=== PATIENT | female | born 1955 | race American Indian/Alaskan Native ===

== ENCOUNTER 2024-02-25 08:44 | Outpatient (RCR) | payer OTHER, SELFPAY | END 2024-03-06 23:59 | disposition home or self-care (01) | LOC: SCTC 08:44 | PROVIDERS: PCP Physician Assistant; Referring Provider Physician Assistant; Visit Provider Nurse Practitioner Family | DX: D69.6 Thrombocytopenia, unspecified (principal); D50.9 Iron deficiency anemia, unspecified; R16.1 Splenomegaly, not elsewhere classified; K64.9 Unspecified hemorrhoids; K57.90 Diverticulosis of intestine, part unspecified, without perforation or abscess without bleeding; E66.9 Obesity, unspecified; Z68.30 Body mass index [BMI] 30.0-30.9, adult | CPT/HCPCS: 99212; G0463 ==

== ENCOUNTER 2024-03-10 15:38 | Outpatient (RCR) | payer OTHER, SELFPAY | END 2024-04-06 23:59 | disposition home or self-care (01) | LOC: SCTC 15:38 | PROVIDERS: PCP Physician Assistant; Referring Provider Physician Assistant; Visit Provider Nurse Practitioner Family | DX: D69.6 Thrombocytopenia, unspecified (principal); D50.9 Iron deficiency anemia, unspecified; R16.1 Splenomegaly, not elsewhere classified; K64.9 Unspecified hemorrhoids; K57.90 Diverticulosis of intestine, part unspecified, without perforation or abscess without bleeding; K25.9 Gastric ulcer, unspecified as acute or chronic, without hemorrhage or perforation | CPT/HCPCS: 99213; G0463 ==

== ENCOUNTER 2024-05-11 15:15 | Outpatient (RCR) | payer OTHER, SELFPAY | END 2024-06-04 23:59 | disposition home or self-care (01) | LOC: SCTC 15:15 | PROVIDERS: PCP Physician Assistant; Referring Provider Physician Assistant; Visit Provider Nurse Practitioner Family | DX: Z71.2 Person consulting for explanation of examination or test findings (principal); D69.6 Thrombocytopenia, unspecified; D50.9 Iron deficiency anemia, unspecified; K64.9 Unspecified hemorrhoids; K57.90 Diverticulosis of intestine, part unspecified, without perforation or abscess without bleeding; R16.1 Splenomegaly, not elsewhere classified | CPT/HCPCS: 99212; G0463 ==

== ENCOUNTER → 2024-06-02 | Outpatient (CLI) | payer OTHER, SELFPAY ==
--- NOTE | 2024-06-02 14:05 | XR_ITS ---
Examination: Bone densitometry Date and time of exam:June 02, 2024 1347 hrs. Indications: Hysterectomy age 41 rib fractures 2019 diabetic vitamin D 5 years, personal history osteopenia Technique: Lumbar spine and hip total bone mineralization values of an calculated. Peak reference and age match control results have been displayed. Findings: Lumbar spine total bone mineralization is0.860 gm/cm2. This is 1.7 standard deviations below peak reference. This is 0.2 standard deviations above age-matched controls. Hip total bone mineralization is 0.823 gm/cm2 This is 1.0 standard deviations below peak reference. This is 0.2 standard deviations above age-matched controls Impression: There is osteopenia based on lumbar spine measurements. There is osteopenia based on hip measurements Lumbar mineralization is decreased 7.2% compared with July 25, 2010 History administration is decreased 2.4% compared with July 25, 2010
== END | disposition home or self-care (01) ==
PROVIDERS: PCP Physician Assistant; Referring Provider Physician Assistant; Visit Provider Physician Assistant
DX: M85.89 Other specified disorders of bone density and structure, multiple sites (principal)
CPT/HCPCS: 77080

== ENCOUNTER 2024-06-08 08:46 | Outpatient (RCR) | payer OTHER, SELFPAY | END 2024-07-05 23:59 | disposition home or self-care (01) | LOC: SCTC 08:46 | PROVIDERS: PCP Physician Assistant; Referring Provider Physician Assistant; Visit Provider Nurse Practitioner Family | DX: D69.6 Thrombocytopenia, unspecified (principal); R16.1 Splenomegaly, not elsewhere classified; K64.9 Unspecified hemorrhoids; K57.90 Diverticulosis of intestine, part unspecified, without perforation or abscess without bleeding; Z86.2 Personal history of diseases of the blood and blood-forming organs and certain disorders involving the immune mechanism; Z87.19 Personal history of other diseases of the digestive system | CPT/HCPCS: 99212; G0463 ==

== ENCOUNTER 2024-08-10 09:21 | Outpatient (RCR) | payer OTHER, SELFPAY | END 2024-09-04 23:59 | disposition home or self-care (01) | LOC: SCTC 09:21 | PROVIDERS: PCP Physician Assistant; Referring Provider Physician Assistant; Visit Provider Nurse Practitioner Family | DX: D69.6 Thrombocytopenia, unspecified (principal); D50.9 Iron deficiency anemia, unspecified; R16.1 Splenomegaly, not elsewhere classified; Z87.19 Personal history of other diseases of the digestive system | CPT/HCPCS: 99212; G0463 ==

== ENCOUNTER 2024-09-22 15:47 | Outpatient (RCR) | payer OTHER, SELFPAY | END 2024-10-04 23:59 | disposition home or self-care (01) | LOC: SCTC 15:47 | PROVIDERS: PCP Physician Assistant; Referring Provider Physician Assistant; Visit Provider Nurse Practitioner Family | DX: D69.6 Thrombocytopenia, unspecified (principal); D50.9 Iron deficiency anemia, unspecified; R16.1 Splenomegaly, not elsewhere classified; K64.9 Unspecified hemorrhoids; K57.90 Diverticulosis of intestine, part unspecified, without perforation or abscess without bleeding; Z87.19 Personal history of other diseases of the digestive system | CPT/HCPCS: 99212; G0463 ==

== ENCOUNTER → 2024-12-13 | Outpatient (CLI) | payer OTHER, SELFPAY ==
--- NOTE | 2024-12-13 10:00 | XR_ITS ---
Examination: Screening digital mammography, bilateral Computer aided detection 3-D breast Tomosynthesis, bilateral Date and time of exam: December 13, 2024 0944 hours, compared to mammograms dating to October 30, 2018 Indication: Screening Technique: Nonmagnified MLO, CC views of the breasts to been obtained, reconstructed from 3-D Tomosynthesis images. R2 computer aided detection program utilized for evaluation of suspicious masses and/or abnormal calcifications. 3-D Tomosynthesis images obtained. Findings: Scattered areas of fibroglandular density. Benign calcifications. No interval suspicious masses Impression: BI-RADS category II: Benign Findings. Recommend 1 year follow-up mammogram.
== END | disposition home or self-care (01) ==
LOC: CDIM 09:31
PROVIDERS: Referring Provider Physician Assistant; Visit Provider Physician Assistant
DX: Z12.31 Encounter for screening mammogram for malignant neoplasm of breast (principal); R92.323 Mammographic fibroglandular density, bilateral breasts; R92.1 Mammographic calcification found on diagnostic imaging of breast
CPT/HCPCS: 77063; 77067

== ENCOUNTER 2024-12-20 09:27 | Outpatient (RCR) | payer OTHER, SELFPAY | END 2025-01-04 23:59 | disposition home or self-care (01) | LOC: SCTC 09:27 | PROVIDERS: PCP Physician Assistant; Referring Provider Nurse Practitioner Family; Visit Provider Nurse Practitioner Family | DX: D69.6 Thrombocytopenia, unspecified (principal); D50.9 Iron deficiency anemia, unspecified; K64.9 Unspecified hemorrhoids; K57.90 Diverticulosis of intestine, part unspecified, without perforation or abscess without bleeding; R16.1 Splenomegaly, not elsewhere classified; K92.1 Melena | CPT/HCPCS: 99212; G0463 ==

== ENCOUNTER 2025-02-01 08:44 | Outpatient (RCR) | payer BC, OTHER, SELFPAY | END 2025-02-04 23:59 | disposition home or self-care (01) | LOC: SCTC 08:44 | PROVIDERS: PCP Physician Assistant; Referring Provider Physician Assistant; Visit Provider Nurse Practitioner Family | DX: D50.9 Iron deficiency anemia, unspecified (principal); D69.6 Thrombocytopenia, unspecified; R16.1 Splenomegaly, not elsewhere classified; K64.9 Unspecified hemorrhoids; K57.90 Diverticulosis of intestine, part unspecified, without perforation or abscess without bleeding; Z87.19 Personal history of other diseases of the digestive system | CPT/HCPCS: 99212; G0463 ==

== ENCOUNTER 2025-03-01 08:37 | Outpatient (RCR) | payer BC, OTHER, SELFPAY | END 2025-03-06 23:59 | disposition home or self-care (01) | LOC: SCTC 08:37 | PROVIDERS: PCP Physician Assistant; Referring Provider Physician Assistant; Visit Provider Nurse Practitioner Family | DX: D69.6 Thrombocytopenia, unspecified (principal); R16.1 Splenomegaly, not elsewhere classified; D50.9 Iron deficiency anemia, unspecified; K64.9 Unspecified hemorrhoids; K57.90 Diverticulosis of intestine, part unspecified, without perforation or abscess without bleeding; K25.9 Gastric ulcer, unspecified as acute or chronic, without hemorrhage or perforation | CPT/HCPCS: 99212; G0463 ==

== ENCOUNTER 2025-03-01 09:59 | Emergency (ER) | payer BC, OTHER, SELFPAY ==
[2025-03-01] VITALS (12 sets, daily range): BP systolic 126–145; BP diastolic 57–82; PULSE 72–87; RESP 16–20; TEMP 36.7–37.1; O2SAT 97–100; BMI 30.7
--- NOTE | 2025-03-01 10:22 | PD.EDRME ---
Rapid Medical Screening Exam RME Arrival date/time: 03/01/25 09:59 69-year-old female with a history of type 2 diabetes, hypertension, hyperlipidemia, anemia was sent to the emergency room by the cancer treatment center for low hemoglobin level \I have greeted and performed a focused initial assessment of this patient. A comprehensive ED assessment and evaluation of the patient, analysis of all test results, and completion of the medical decision making process will be conducted by additional ED providers. Chief Complaint: Recheck/Abnormal Lab/Rx Time Seen by Provider: 03/01/25 10:08 Vital signs: Vital Signs Temperature 98.2 F 03/01/25 10:20 Pulse Rate 87 03/01/25 10:20 Respiratory Rate 18 03/01/25 10:20 Blood Pressure 126/69 03/01/25 10:20 Pulse Oximetry (%) 100 03/01/25 10:20 Oxygen Delivery Method Room Air 03/01/25 10:20 Vital signs reviewed by provider: Yes Exam: Strong and regular rhythm. S1 and S2 noted no JVD no murmurs Soft nontender abdomen Clear bilateral lung sounds Clinical Impression: Anemia
[2025-03-01 10:45] LABS: Basophils # (Auto) 0.0 Thou/mm3 (0.0-0.2); Basophils % (Auto) 1 % (0-2.5); Eosinophils # (Auto) 0.3 Thou/mm3 (0.0-0.5); Eosinophils % (Auto) 8 % (0-10); Hematocrit 23.3 % (36.0-46.0); Immature Granulocytes Auto 0.01 Thou/mm3 (0.00-0.00); Lymphocytes # (Auto) 0.9 Thou/mm3 (1.0-4.8); Lymphocytes % (Auto) 25 % (10-50); Mean Corpuscular HGB Conc 28.3 g/dl (31.0-37.0); Mean Corpuscular Hemoglobin 23.1 pg (25.0-35.0); Mean Corpuscular Volume 82 fL (80-100); Monocytes # (Auto) 0.3 Thou/mm3 (0.0-0.8); Monocytes % (Auto) 8 % (0-12); Neutrophils # (Auto) 2.1 Thou/mm3 (1.8-7.7); Neutrophils % (Auto) 57 % (37-80); Nucleated Red Blood Cell # 0.00 Thou/mm3 (0.00-0.00); Nucleated Red Blood Cell % 0 /100 WBC (0); RDW Standard Deviation 44.5 fL (36.4-46.3); Red Blood Count 2.86 Miln/mm3 (4.00-5.20); White Blood Count 3.7 Thou/mm3 (3.6-11.0)
[2025-03-01 11:00] LABS: Hemoglobin 6.6 g/dL (12.0-16.0); Platelet Count 57 Thou/mm3 (140-440)
[2025-03-01 11:02] LABS: INR 1.1 (0.9-1.3); Partial Thromboplastin Time 25.6 Seconds (22.0-36.0); Prothrombin Time 12.1 Seconds (9.0-12.2)
[2025-03-01 11:27] LABS: Alanine Aminotransferase 28 U/L (10-49); Albumin, Serum 3.9 gm/dL (3.4-4.8); Albumin/Globulin Ratio 1.6 (1.2-2.2); Anion Gap 10 (7-16); Aspartate Amino Transferase < 10 U/L (0-34); BUN/Creatinine Ratio 11 Ratio (12-20); Bilirubin,Total 0.9 mg/dL (0.3-1.2); Blood Urea Nitrogen 15 mg/dL (9-23); Calcium 9.5 mg/dL (8.3-10.6); Calcium (Corrected) 9.6 mg/dL (8.5-10.1); Carbon Dioxide 22.1 mMol/L (20.0-31.0); Chloride 115 mMol/L (98-107); Creatinine (Component) 1.4 mg/dL (0.6-1.3); Estimated Creatinine Clearance 41.7 mL/min (>60); Globulin 2.5 gm/dL (2.3-3.5); Glucose 91 mg/dL (74-106); Osmolality,Calculated 293 (275-295); Potassium 4.2 mMol/L (3.4-5.1); Sodium 147 mMol/L (136-145); Total Protein 6.4 gm/dL (5.7-8.2); eGFR 41 See Note
[2025-03-01 11:46] LABS: Alkaline Phosphatase 64 U/L (46-116)
--- NOTE | 2025-03-01 13:58 | PD.EDADULT ---
ED General RME/HPI General Chief complaint: Recheck/Abnormal Lab/Rx Stated complaint: LOW HGB Time Seen by Provider: 03/01/25 10:08 Arrival date/time: 03/01/25 09:59 CC: Generalized weakness and anemia HPI patient referred by PCP over for low hemoglobin. The patient has a history of chronic anemia is on iron pills but is awaiting a iron transfusion next week. Was informed by her PCP from outside lab draw that her hemoglobin was low. Patient denies chest pain shortness of breath difficulty breathing. Patient also states that she has had chronically low platelets. RME / HPI RME / HPI narrative: 03/01/25 09:59 69-year-old female with a history of type 2 diabetes, hypertension, hyperlipidemia, anemia was sent to the emergency room by the cancer treatment center for low hemoglobin level \I have greeted and performed a focused initial assessment of this patient. A comprehensive ED assessment and evaluation of the patient, analysis of all test results, and completion of the medical decision making process will be conducted by additional ED providers. Exam: Strong and regular rhythm. S1 and S2 noted no JVD no murmurs Soft nontender abdomen Clear bilateral lung sounds Impression: Anemia Related Data Home Medications ?Medication ?Instructions ?Recorded ?Confirmed insulin degludec 100 unit/mL (3 75 unit SQ QDAY ##0 03/08/16 05/06/22 mL) subcutaneous pen (Tresiba FlexTouch U-100 insulin) lisinopril 5 mg tablet 5 mg PO QDAY #0 tabs 03/08/16 05/06/22 insulin aspart U-100 100 unit/mL 20 unit subcut TID ##15 03/16/16 05/06/22 (3 mL) subcutaneous pen (Novolog FlexPen U-100 Insulin aspart) clopidogrel 75 mg tablet 75 mg PO QDAY 07/21/20 05/06/22 Held on 05/06/22. Instructions: Resume on 05/07/22. rosuvastatin 40 mg tablet 20 mg PO QDAY 07/21/20 05/06/22 aspirin 81 mg tablet,delayed 81 mg PO QDAY 05/06/22 05/06/22 release cholecalciferol (vitamin D3) 25 1,000 unit PO DAILY 05/06/22 05/06/22 mcg (1,000 unit) tablet (Vitamin D3) coenzyme Q10 100 mg capsule 200 mg PO DAILY 05/06/22 05/06/22 (CoQ-10) insulin lispro 200 unit/mL (3 mL) 20 unit subcut TID 05/06/22 05/06/22 subcutaneous pen (Humalog KwikPen U-200 Insulin) ranolazine 500 mg tablet,extended 500 mg PO BID 05/06/22 05/06/22 release,12 hr semaglutide 1 mg/dose (4 mg/3 mL) 1 mg subcut 1XD 05/06/22 05/06/22 subcutaneous pen injector (Ozempic) sodium bicarbonate 650 mg tablet 650 mg PO BID 05/06/22 05/06/22 terbinafine HCl 250 mg tablet 250 mg PO DAILY 05/06/22 05/06/22 vitamin B comp no.3-folic acid 1 1 tab PO DAILY 05/06/22 05/06/22 mg-vit C 60 mg-biotin 300 mcg tablet (Elvira-Suzette Rx) Previous Rx's ?Medication ?Instructions ?Recorded erythromycin 5 mg/gram (0.5 %) eye 1 applic ophthalmic (eye) QDAY 06/01/23 ointment #3.5 grams Allergies Allergy/AdvReac Type Severity Reaction Status Date / Time No Known Allergies Allergy Verified 06/01/23 02:59 Review of Systems Review of Systems Narrative Review of Systems: GEN: No fever, no chills, no weight loss EYES: No discharge, no visual changes, no pain HEENT: No ear pain, no congestion, no sore throat PULM: No shortness of breath, no cough, no congestion CV: No chest pain, no dyspnea on exertion, no palpitations GI: No nausea, no vomiting, no diarrhea, no pain, no constipation : No frequency, no urgency, no dysuria MUSC/SKEL: No joint pain, no back pain SKIN: No rash PSYCH: No hallucinations, no depression HEME/LYMPH: No easy bleeding or bruising tendencies NEURO: + weakness, no headache Past Medical History Past Medical History NEUROLOGIC: Negative Neurological Disorders or Seizures CARDIAC: Positive Cardiac Disorders (stent x1, heart attack), Myocardial Infarction, Hypercholesterolemia and Hypertension; Negative Congestive Heart Failure RESPIRATORY: Negative Chronic Obstructive Pulmonary Disease (COPD) GASTROINTESTINAL: Negative Gastrointestinal Disorders GENITOURINARY: Negative Genitourinary Disorders or Renal Disease MUSCULOSKELETAL: Positive Carpal Tunnel Syndrome (right); Negative Musculoskeletal Disorders ENDOCRINE: Positive Endocrine Disorders and Diabetes Mellitus Type 2; Negative Diabetes Mellitus Type 1 HEMATOLOGIC: Positive Anemia OTHER HISTORY: Negative Hospitalization, Falls, Blood Transfusions, Blood Transfusion Reaction (NA), Anesthesia Reactions, Chicken Pox, Measles, Mumps or Cancer Family History FAMILY HISTORY: Negative Family Psychiatric Problems, Family Respiratory Disorders, Family Cardiac Disorders or Family Gastrointestinal Problems Surgical History SURGICAL: Positive Coronary Stent (x1), Tonsillectomy, Hysterectomy (partial) and Tubal Ligation Social History SMOKING STATUS: Former smoker ED Exam Narrative Physical exam: [General: Not in any acute distress Head normocephalic HEENT: Eyes pupils are PERRLA EOMs are intact blanched conjunctiva, mouth pale moist membranes swallow symmetrical phonation normal all the subsystems of HEENT are within acceptable limits Neck is supple nontender Chest equal chest rise nontender to palpation Respiratory: Clear to auscultation no wheezes crackles or rubs CV: Rate rhythm is regular no murmurs rubs or clicks Abdomen is distended secondary to body habitus soft nontender no masses positive bowel sounds all 4 quadrants Back: No CVA tenderness no spinous process tenderness from cervical spine thoracic and lumbar spine Skin: Pale, intact no petechiae rash induration ulceration or crepitus Extremities: Moving all extremity against resistance cap refill less than 2 seconds neurosensory intact Neuro: Awake alert oriented x3 Glascow coma 15 no focal deficits] Course Quality Measures none Orders Category Date Time Status Transfuse,blood/blood products NOW Care 03/01/25 13:58 Completed CBC Stat Lab 03/01/25 10:30 Completed CMP [Comprehensive Metabolic Panel] Stat Lab 03/01/25 10:30 Completed PT [Prothrombin Time with INR] Stat Lab 03/01/25 10:30 Completed PTT [Partial Thromboplastin Time] Stat Lab 03/01/25 10:30 Completed Type and Screen Stat Lab 03/01/25 10:30 Completed prbc [Red Blood Cells] Stat Lab 03/01/25 10:30 Completed Special Diet Request Routine Oth 03/01/25 14:33 Active Vital Signs Vital signs: Vital Signs Temperature 98.2 F 03/01/25 10:20 Pulse Rate 87 03/01/25 10:20 Respiratory Rate 18 03/01/25 10:20 Blood Pressure 126/69 03/01/25 10:20 Pulse Oximetry (%) 100 03/01/25 10:20 Oxygen Delivery Method Room Air 03/01/25 10:20 Discharge Plan Plan Patient Disposition: HOME (Self Care) Patient condition on transfer: Stable Prescriptions/Referrals Prescriptions/Med Rec: No Action lisinopril 5 MG tablet 5 mg PO QDAY Qty: 0 insulin degludec [Tresiba FlexTouch U-100] 100 UNIT/1 ML insulin pen 75 unit SQ QDAY Qty: 0 insulin aspart U-100 [Novolog FlexPen U-100 Insulin] 100 UNIT/1 ML insulin pen 20 unit Sub-Q TID Qty: 15 Rx Instructions: WITH MEALS clopidogrel 75 mg Tablet 75 mg PO QDAY rosuvastatin 40 mg Tablet 20 mg PO QDAY aspirin 81 mg Tablet,Delayed Release (Dr/Ec) 81 mg PO QDAY terbinafine HCl 250 mg tablet 250 mg PO DAILY Patient Comments: TAKE 1 TABLET BY MOUTH DAILY sodium bicarbonate 650 mg tablet 650 mg PO BID Patient Comments: TAKE 2 TABLETS BY MOUTH EVERY DAY coenzyme Q10 [CoQ-10] 100 mg capsule 200 mg PO DAILY Patient Comments: take 200 mg tablet by mouth once a day ranolazine 500 mg tablet extended release 12 hr 500 mg PO BID Patient Comments: TAKE 1 TABLET BY MOUTH TWICE DAILY cholecalciferol (vitamin D3) [Vitamin D3] 25 mcg (1,000 unit) tablet 1,000 unit PO DAILY Patient Comments: take 1 tablet by mouth once a day Elvira-Suzette Rx 1-60-300 mg-mg-mcg tablet 1 tab PO DAILY Patient Comments: TAKE 1 TABLET BY MOUTH EVERY DAY Humalog KwikPen Insulin 200 unit/mL (3 mL) insulin pen 20 unit SUBCUT TID Patient Comments: ADMINISTER 20 UNITS UNDER THE SKIN THREE TIMES DAILY WITH MEALS. Rx Instructions: WITH MEALS Ozempic 1 mg/dose (4 mg/3 mL) pen injector 1 mg SUBCUT 1XD Rx Instructions: EVERY FRIDAY erythromycin 5 mg/gram (0.5 %) ointment 1 applic ophthalmic (eye) QDAY Qty: 3.5 0RF Referrals: Willy Joy MD [Physician, Gastroenterology] - In 1 week Problem List Clinical Impression: Anemia Patient/Caregiver Discharge Instructions Education Materials: Anemia Print Language: Welsh Stand Alone Forms: Yulisa Award Info., Work/School Release, Patient Portal Info Letter PA/INK GRINDER Supervising Physician PA/INK GRINDER Supervising Physician: Farhat Muñoz ENP [facility] Clinical Information Provided by: patient Medical Records reviewed [facility] Meds/Rx considered, not ordered None Labs/Rad/Tests considered, not ordered None Chronic Illness/Social Conditions Explain: Anemia Labs Labs: interpreted by sc Lab(s) Interpretation(s): CBC shows no leukocytosis, hemoglobin of 6.6 hematocrit of 23.3. Thrombocytopenic with a platelet count of 57. Coags within acceptable limits Sodium 147 potassium of 4.2 chloride of 115 creatinine 1.4 BUN is 15. No transaminitis or T. bili elevation.
--- NOTE | 2025-03-01 14:38 | PC.NURSE ---
Patient came in the ED after she went to cancer center, they found to have hgb 6.8. Pt is a&ox4, denies pain, only request was for food. VSS, call light within reach, bed in lowest position.
[2025-03-01 15:55] LABS: Slide Review Platelets confirmed
== END 2025-03-01 21:11 | disposition home or self-care (01) ==
PROVIDERS: Nurse Practitioner Family; Emergency Provider Emergency Medicine; PCP Physician Assistant
DX: D64.9 Anemia, unspecified (principal)
CPT/HCPCS: 36415; 36430; 80053; 85025; 85610; 85730; 86850; 86900; 86901; 86923; 99283; P9016

== ENCOUNTER 2025-04-05 12:45 | Outpatient (RCR) | payer BC, OTHER, SELFPAY ==
[2025-03-09 17:05] LABS: Hematocrit 29.0 % (36.0-46.0)
[2025-03-09 17:19] LABS: Hemoglobin 8.5 g/dL (12.0-16.0)
== END 2025-04-06 23:59 | disposition home or self-care (01) ==
LOC: SCTC 12:45
PROVIDERS: PCP Physician Assistant; Referring Provider Physician Assistant; Visit Provider Nurse Practitioner Family
DX: D50.9 Iron deficiency anemia, unspecified (principal); D69.6 Thrombocytopenia, unspecified; R16.1 Splenomegaly, not elsewhere classified
CPT/HCPCS: 85014; 85018; 96365; 96375; J1756; J2919; J3490; J7040